=== PATIENT | male | born 1960 | race Caucasian/White ===

== ENCOUNTER 2020-04-26 10:18 | Emergency (ER) | payer OTHER, SELFPAY ==
--- NOTE | 2020-04-26 10:24 | ED.BACK ---
HPI - Back Pain/Injury General Chief Complaint: Back Pain/Injury Stated Complaint: MUSCLE SPASMS IN BACK Time Seen by Provider: 04/26/20 10:26 Source: patient and RN notes reviewed Mode of arrival: ambulatory Limitations: no limitations History of Present Illness HPI Narrative: 59-year-old male presents with concern for left lower back pain. Reports history of back pain flareups, denies any previous trauma or injury to his back, denies back surgeries. Reports he was doing heavy lifting at work yesterday, did not have any immediate pain. Denies any direct trauma or injury. Reports when he got home he noticed a gradual onset of pain. Reports he did not take any medicine or had no intervention for his pain. He denies fever, abdominal pain, loss of bowel or bladder function, perianal anesthesia. MD elicited complaint: back pain Related Data Home Medications Medication Instructions Recorded Confirmed atorvastatin 04/26/20 citalopram mg 04/26/20 pantoprazole PO 04/26/20 Allergies Allergy/AdvReac Type Severity Reaction Status Date / Time No Known Allergies Allergy Unverified 03/07/15 19:37 Review of Systems Review of Systems: Narrative: CONSTITUTIONAL: Denies malaise, chills, sweats, or fever. CARDIOVASCULAR: Denies chest pain, palpitations RESPIRATORY: Denies cough or dyspnea. GASTROINTESTINAL: Denies abdominal pain, nausea, vomiting, diarrhea, bloody, or mucous stools. GENITOURINARY: Denies dysuria or hematuria. SKIN: Denies bruising, redness MUSCULOSKELETAL: Reports left low back pain NEUROLOGIC: Denies numbness, weakness, or headache. All systems reviewed & are unremarkable except as noted in HPI and below PMFSH Comments At time of signature, agree with nursing past medical, surgical, social and family history. There is no relevant family history pertinent to the presenting complaint Exam Narrative: Exam Narrative: GENERAL: Well-appearing, well-nourished, and in no acute distress. HEAD: Normocephalic, atraumatic. EYES: PERRLA and EOMI. NECK: Supple. No lymphadenopathy. CHEST: Clear to auscultation. No respiratory distress. HEART: Regular rate and rhythm. Distal pulses palpable and equal, cap refill <3 seconds ABDOMEN: Soft, nontender, nondistended, normal active bowel sounds, no palpable or pulsatile masses. No CVA tenderness MUSCULOSKELETAL: Normal range of motion and strength in all extremities; 5/5 strength with hip flexion and extension, dorsiflexion and extension, knee flexion and extension, plantar flexion and extension. Normal sensation in dermatomal distributions with sensitivity to light touch and pain. No midline back tenderness to palpation. No paraspinal tenderness. Transfers from lying to sitting to standing. SKIN: Warm, dry, no rash. No ecchymosis, erythema, open wounds to back. NEURO: No focal deficits. Alert and oriented x3. Reflexes intact. Normal gait. PSYCH: Normal mood and affect Course Course Emergency Course: Patient is aware of diagnosis, understands and agrees to treatment plan. Anticipatory guidance given. Patient agrees to follow-up as directed and is aware of reasons to seek care at the emergency department. Portions of this record may have been created with voice recognition software Vital Signs Vital signs: Vital Signs Temperature 97.8 F 04/26/20 10:27 Pulse Rate 72 04/26/20 10:27 Respiratory Rate 16 04/26/20 10:27 Blood Pressure 138/77 04/26/20 10:27 Pulse Oximetry 97 04/26/20 10:27 Temperature 97.8 F 04/26/20 10:27 Pulse Rate 72 04/26/20 10:27 Respiratory Rate 16 04/26/20 10:27 Blood Pressure 138/77 04/26/20 10:27 Pulse Oximetry 97 04/26/20 10:27 Reviewed. MDM - Back Pain/Injury MDM Narrative Medical decision making narrative: No risk factors or findings concerning for epidural abscess, diskitis, vertebral osteomyelitis, cord compression, cauda equina, vertebral fracture or bone malignancy, AAA, or pyelonephritis. Patient instructed
[2020-04-26 10:27] VITALS: BP 138/77; PULSE 72; RESP 16; TEMP 36.6; O2SAT 97
== END 2020-04-26 10:44 | disposition home or self-care (01) ==
PROVIDERS: Emergency Provider Nurse Practitioner; PCP Family Medicine Adolescent Medicine
DX: M54.5 Low back pain (principal)
CPT/HCPCS: 99203; G0463

== ENCOUNTER 2022-10-30 08:14 | Outpatient (RCR) | payer OTHER, SELFPAY ==
[2022-10-30 08:31] VITALS: BMI 28.4
== END 2022-10-30 13:05 | disposition home or self-care (01) ==
LOC: ANHDMC 08:14
PROVIDERS: PCP Family Medicine Adolescent Medicine; Visit Provider Internal Medicine Endocrinology, Diabetes & Metabolism
DX: E61.2 Magnesium deficiency (principal); E16.2 Hypoglycemia, unspecified; Z71.3 Dietary counseling and surveillance
CPT/HCPCS: 97802

== ENCOUNTER 2023-05-02 13:21 | Emergency (ER) | payer OTHER, SELFPAY ==
[2023-05-02 13:34] VITALS: BP 119/74; PULSE 60; RESP 16; TEMP 36.8; O2SAT 99
[2023-05-02 13:36] VITALS: BP 119/74; PULSE 60; RESP 16; TEMP 36.8; O2SAT 99
--- NOTE | 2023-05-02 13:38 | ED.BACK ---
HPI - Back Pain/Injury General Chief Complaint: Back Pain/Injury Stated Complaint: Back pain Time Seen by Provider: 05/02/23 13:43 Source: patient Mode of arrival: ambulatory Limitations: no limitations History of Present Illness HPI Narrative: 62-year-old male presented for complaint of left lower back pain after injury about 2 hours prior to arrival, while at work today. States he was kneeling on a raised flower bed, and when he stood up he felt a pull to the low back and feels like it is spasming. Pain worse when transitioning from sitting/standing, twisting or walking. Denies pain radiating to the hip or the legs, denies numbness, tingling or weakness of the legs, denies loss of b/b or saddle paresthesia. Gait is slow. Has not taken anything for pain yet. Reports similar symptoms in the past. Related Data Home Medications Medication Instructions Recorded Confirmed omeprazole 20 mg capsule,delayed 20 mg PO DAILY 03/14/22 05/02/23 release loratadine 10 mg tablet (Claritin) 10 mg PO DAILY 09/24/22 05/02/23 Allergies Allergy/AdvReac Type Severity Reaction Status Date / Time No Known Allergies Allergy Verified 04/01/23 09:16 Review of Systems Review of Systems: CONSTITUTIONAL: Denies body aches, fever, chills EYES: Denies visual changes CARDIOVASCULAR: Denies chest pain, palpitations, or edema. RESPIRATORY: Denies cough or dyspnea. GASTROINTESTINAL: Denies abdominal pain, nausea, vomiting, or diarrhea. SKIN: Denies rash, itching, or wounds. MUSCULOSKELETAL: reports back pain NEUROLOGIC: Denies headache, numbness, tingling, or weakness. All systems reviewed & are unremarkable except as noted in HPI and below PMFSH Past Medical History Medical History GERD (gastroesophageal reflux disease) History of narcotic addiction Family History Family History Father Hypertension CAD (coronary artery disease) Mother Diabetes mellitus Sibling Diabetes mellitus Sibling Diabetes mellitus Other CAD (coronary artery disease) Other Alcoholism Asthma Depression Heart disease Social History Social History Smoking packs per day: 1 Smoking cigarettes per day: 20.0 Years smoked: 10 Smoking pack-years: 10.00 Smoking status: Former smoker Second hand tobacco smoke exposure: No Smoking end date: 02/19/08 Alcohol intake: never Substance use: never Substance use type: does not use Lack of Transportation: No Lack of Food: Never True Current Housing: I Have Housing Concerned About Future Housing: No Difficulty Paying Gas/Electric Bills: No Difficulty Paying for Meds: YES Education: Trade/Vocational Certificate Difficulty w/ Childcare or Family Care: No Living arrangements: with family Occupation/Education: occupation Gender identity (if verbalized by the patient): Male Spiritual care concerns: No Agree to blood products: Yes Comments At time of signature, I have reviewed and agree with nursing past medical, surgical, social and family history unless otherwise noted. Please see nursing chart for further information. There is no relevant family history pertinent to the presenting complaint Exam Narrative: GENERAL: Well-appearing overall; appears in pain, in no acute distress. HEAD: Normocephalic, atraumatic. EYES: conjunctivae clear NECK: Supple. full ROM CHEST: Speaks in full sentences. No respiratory distress. HEART: Regular rate and rhythm. Normal and equal peripheral pulses. MUSC: Left low backing in machine tender with palpation. No Vertebral point tenderness. BLEs with normal strength and sensation, normal range of motion. endorses pain to left low back with any movement. No bruising, open wounds, or obvious deformity; alignment normal, pulse palpable and equal bilaterally, skin warm, dry, pink. Capilla
== END 2023-05-02 13:54 | disposition home or self-care (01) ==
PROVIDERS: Emergency Provider Nurse Practitioner Family; PCP Family Medicine Adolescent Medicine
DX: S39.012A Strain of muscle, fascia and tendon of lower back, initial encounter (principal); K21.9 Gastro-esophageal reflux disease without esophagitis; Z87.891 Personal history of nicotine dependence
CPT/HCPCS: 99213; G0463

== ENCOUNTER 2023-09-17 07:01 | Day surgery (SDC) | payer OTHER, SELFPAY ==
[2023-08-18 11:27] VITALS: BMI 28.8
[2023-09-17 08:21] VITALS: BP 140/93; PULSE 62; RESP 18; TEMP 36.8; O2SAT 97
[2023-09-17 08:23] VITALS: BMI 28.5
--- NOTE | 2023-09-17 08:31 | PM.HPGS ---
History of Present Illness History of Present Illness Consent: Risks, benefits, and alternatives have been discussed and questions answered. Patient agrees to proceed with procedure. Chief complaint: Screening for neoplasm of colon Narrative: Bipin Soriano is a 63 year old male presents for screening colonoscopy. Patient's current weight appetite and bowel movements are normal. Patient denies abdominal pain. He has had no bleeding. Family history noncontributory. Previous colonoscopy 10 years ago was unremarkable. Review of Systems Review of Systems: Review of systems noncontributory. [facility] Past Medical History Medical History GERD (gastroesophageal reflux disease) History of narcotic addiction Family History Family History Father Hypertension CAD (coronary artery disease) Mother Diabetes mellitus Sibling Diabetes mellitus Sibling Diabetes mellitus Other CAD (coronary artery disease) Other Alcoholism Asthma Depression Heart disease Social History Social History (Updated 08/06/23 @ 16:01 by Mell Batres [facility]) Smoking packs per day: 1 Smoking cigarettes per day: 20.0 Years smoked: 10 Smoking pack-years: 10.00 Smoking status: Never smoker Second hand tobacco smoke exposure: No Smoking end date: 02/19/08 Alcohol intake: never Substance use: never Substance use type: does not use Lack of Transportation: No Lack of Food: Never True Current Housing: I Have Housing Concerned About Future Housing: No Difficulty Paying Gas/Electric Bills: No Difficulty Paying for Meds: YES Currently Unemployed: No Education: Trade/Vocational Certificate Difficulty w/ Childcare or Family Care: No Living arrangements: with family Occupation/Education: occupation Gender identity (if verbalized by the patient): Male Spiritual care concerns: No Agree to blood products: Yes Meds Home Medications and Allergies Home Medications Medication Instructions Recorded Confirmed Type blood sugar diagnostic (OneTouch #50 ea 01/25/22 09/17/23 Rx Verio test strips) omeprazole 20 mg capsule,delayed 20 mg PO DAILY 03/14/22 09/17/23 History release blood-glucose sensor (FreeStyle #6 ea 04/01/23 09/17/23 Rx Kelsey 3 Sensor device) metformin 500 mg tablet 500 mg PO DAILY 90 days #90 tabs 09/19/23 03/06/24 Rx omega-3 acid ethyl esters 1 gram 2 cap PO BID 90 days #360 caps 04/01/23 09/17/23 Rx capsule (Lovaza) citalopram 40 mg tablet 40 mg PO DAILY #90 tabs 07/22/23 09/17/23 Rx atorvastatin 10 mg tablet 10 mg PO DAILY #90 tabs 09/14/23 09/17/23 Rx Allergies Allergy/AdvReac Type Severity Reaction Status Date / Time No Known Allergies Allergy Verified 09/17/23 08:18 Vital Signs Vital Signs - 24 hr 09/17/23 08:21 Temperature 98.3 F Pulse Rate 62 Respiratory Rate 18 Blood Pressure 140/93 H Pulse Oximetry 97 Oxygen Delivery Room Air Exam Narrative: Physical exam reveals patient signs stable. HEENT exam is unremarkable. Patient is anicteric. Lungs are clear to auscultation and percussion. Is without murmur or extra sounds. Abdomen bowel sounds are present soft nontender with no organomegaly. Digital external rectal exam normal. Assessment and Plan Assessment and plan (1) Encounter for screening colonoscopy: Code(s): Z12.11 - Encounter for screening for malignant neoplasm of colon Status: Acute Assessment and Plan: Patient presents today for screening colonoscopy. He appears to be at average risk for colon polyps. Further recommendations may be given after endoscopy.
[2023-09-17] MEDS: LACTATED RINGERS 1,000 ML 150 ML IV CONT (08:34)
[2023-09-17 08:39] LABS: Glucose Point of Care 101 mg/dl (65-105)
--- NOTE | 2023-09-17 09:42 | WPDANESEPPF ---
Anes - Initial Pre Proc Eval Procedure: Operation Date: 09/17/23 09:30 Proposed Procedures p Screening Colonoscopy - Bipin Stephen MD Date/Time: 09/17/23 09:42 Surgeon: Bipin Stephen MD Pre Op Diagnosis: Screening for neoplasm of colon Patient Data Age: 63 Gender: M Height: 1.69 m Weight: 81.3 kg Last Vital Signs Temp 36.8 C 09/17/23 08:21 Pulse 62 09/17/23 08:21 Resp 18 09/17/23 08:21 BP 140/93 H 09/17/23 08:21 Pulse Ox 97 09/17/23 08:21 O2 Del Method Room Air 09/17/23 08:21 Allergies Allergy/AdvReac Type Severity Reaction Status Date / Time No Known Allergies Allergy Verified 09/17/23 08:18 Home Medications Medication Instructions Recorded Confirmed Type blood sugar diagnostic (OneTouch #50 ea 01/25/22 09/17/23 Rx Verio test strips) omeprazole 20 mg capsule,delayed 20 mg PO DAILY 03/14/22 09/17/23 History release blood-glucose sensor (FreeStyle #6 ea 04/01/23 09/17/23 Rx Kelsey 3 Sensor device) metformin 500 mg tablet 500 mg PO DAILY 90 days #90 tabs 04/01/23 09/17/23 Rx omega-3 acid ethyl esters 1 gram 2 cap PO BID 90 days #360 caps 04/01/23 09/17/23 Rx capsule (Lovaza) citalopram 40 mg tablet 40 mg PO DAILY #90 tabs 07/22/23 09/17/23 Rx atorvastatin 10 mg tablet 10 mg PO DAILY #90 tabs 09/14/23 09/17/23 Rx Laboratory Tests 09/17/23 08:37 POC Capillary Glucose 101 mg/dl (65-105) Patient hx anesthesia problems: none Family hx anesthesia problems: none Results Review: All pre-operative results and documents have been reviewed as part of the pre-operative evaluation. [facility] Past Medical History Medical History GERD (gastroesophageal reflux disease) History of narcotic addiction Family History Family History Father Hypertension CAD (coronary artery disease) Mother Diabetes mellitus Sibling Diabetes mellitus Sibling Diabetes mellitus Other CAD (coronary artery disease) Other Alcoholism Asthma Depression Heart disease Social History Social History Smoking packs per day: 1 Smoking cigarettes per day: 20.0 Years smoked: 10 Smoking pack-years: 10.00 Smoking status: Never smoker Second hand tobacco smoke exposure: No Smoking end date: 02/19/08 Alcohol intake: never Substance use: never Substance use type: does not use Lack of Transportation: No Lack of Food: Never True Current Housing: I Have Housing Concerned About Future Housing: No Difficulty Paying Gas/Electric Bills: No Difficulty Paying for Meds: YES Currently Unemployed: No Education: Trade/Vocational Certificate Difficulty w/ Childcare or Family Care: No Living arrangements: with family Occupation/Education: occupation Gender identity (if verbalized by the patient): Male Spiritual care concerns: No Agree to blood products: Yes Anes - Eval Final PreProcedure Day of Procedure 09/17/23 09:42 Patient weight: overweight Heart: regular rate and rhythm Lungs: clear to auscultation Airway: Mallampati scale class II Neurological: alert and oriented Last oral intake: >/= 8 hours ASA classification: III Emergent: no Anesthetic plan: proceed Anesthesia type and monitoring: general GIVS and standard monitoring Results Review: All pre-operative results and documents have been reviewed as part of the pre-operative evaluation. Informed Consent: The patient's anesthetic plan and its attendant risks and benefits were discussed with the patient/family/POA. Questions were solicited and answers provided to the satisfaction of the patient/family/POA.
[2023-09-17 10:08] VITALS: BP 96/65; PULSE 60; RESP 20; O2SAT 93
[2023-09-17 10:18] VITALS: BP 93/71; PULSE 51; RESP 20; O2SAT 93
--- NOTE | 2023-09-17 10:24 | WPDANESPN ---
Anes - Prog Note Post-Op Date/Time: 09/17/23 10:24 Cardiovascular status: normal Respiratory status: normal Airway patency: baseline Mental status: baseline Post-Op hydration status: normal Vital Signs: Last Vital Signs Temp 36.8 C 09/17/23 08:21 Pulse 60 09/17/23 10:08 Resp 20 09/17/23 10:08 BP 96/65 L 09/17/23 10:08 Pulse Ox 93 09/17/23 10:08 O2 Del Method Room Air 09/17/23 10:08 Pain Score (VAS): 0/10 I/O: Intake & Output 09/16/23 09/17/23 09/17/23 23:59 07:59 15:59 Intake Total 650 Balance 650 09/17/23 08:37 POC Capillary Glucose 101 Patient Feedback: Patient satisfied with anesthetic care.
[2023-09-17 10:28] VITALS: BP 103/79; PULSE 74; RESP 18; O2SAT 98
== END 2023-09-17 10:49 | disposition home or self-care (01) ==
PROVIDERS: PCP Family Medicine Adolescent Medicine; Visit Provider Internal Medicine Gastroenterology
PROC: 0DJD8ZZ Inspection of Lower Intestinal Tract, Via Natural or Artificial Opening Endoscopic (ICD-10-PCS; CPT 45378; principal; 2023-09-17 09:30)
DX: Z12.11 Encounter for screening for malignant neoplasm of colon (principal); K64.8 Other hemorrhoids
CPT/HCPCS: 45378